=== PATIENT | female | born 1970 | race African-American/Black ===

== ENCOUNTER → 2019-05-23 | Day surgery (SDC) | payer OTHER | END | disposition home or self-care (01) | LOC: JRADUS-SUR 09:38 → JRADUS 09:38 | PROVIDERS: ATTEND Internal Medicine | PROC: 0HBT3ZX Excision of Right Breast, Percutaneous Approach, Diagnostic (ICD-10-PCS; principal; 2019-05-23) | DX: N60.11 Diffuse cystic mastopathy of right breast (principal) | CPT/HCPCS: 19083; 77065-TC; 87899; A4648 ==

== ENCOUNTER 2023-10-16 13:08 | Emergency (ER) | payer OTHER ==
[2023-10-16 13:22] VITALS: BP 158/78; PULSE 69; RESP 18; TEMP 98.3; BMI 28.3
[2023-10-16 14:52] LABS: EOS % 1.8 % (0-4.5); HEMATOCRIT 39.1 % (32.4-45.2); LYMPH % 19.3 % (8-40); MCH 26.9 pg (25.7-33.7); MCHC 33.2 g/dl (32.0-36.0); MEAN CELL VOLUME 80.9 fl (80-96); MEAN PLT VOLUME 7.3 fl (7.5-11.1); MONO % 4.1 % (3.8-10.2); NEUT % 73.8 % (42.8-82.8); PLATELET COUNT 313 10^3/uL (134-434); RBC 4.83 M/mm3 (3.60-5.2); RDW 14.8 % (11.6-15.6); WHITE BLOOD COUNT 5.6 K/mm3 (4.0-10.0)
[2023-10-16 15:48] LABS: POTASSIUM 4.1 mmol/L (3.5-5.1)
[2023-10-16 15:51] LABS: BLOOD UREA NITROGEN 12.2 mg/dL (7-18)
[2023-10-16 15:55] LABS: BILIRUBIN,TOTAL 0.4 mg/dL (0.2-1)
[2023-10-16 15:56] LABS: TOT PROT 7.8 g/dl (6.4-8.2)
== END 2023-10-16 16:55 | disposition home or self-care (01) ==
LOC: JER 13:08
DX: I10 Essential (primary) hypertension (principal); M79.602 Pain in left arm
CPT/HCPCS: 36415; 71046-TC-FY; 80053; 84484; 84703; 85025; 93005; 93010; 99285-25